=== PATIENT | male | born 1980 | race Caucasian/White ===

== ENCOUNTER 2017-06-20 09:23 | Emergency (ER) | payer MEDICAID, OTHER ==
[2017-06-20] MEDS: DEXAMETHASONE 10 MG/ML 1 ML INJ IM (11:32)
[2017-06-20] MEDS: ALBUTEROL 0.083% (NEB) 2.5 MG/3 ML AMP HHN (11:36)
[2017-06-20] MEDS: IPRATROPIUM (NEB) 0.5 MG/2.5 ML AMP HHN (11:36)
== END 2017-06-20 13:10 | disposition home or self-care (01) ==
LOC: FTE 13:10 → E/R 09:23
DX: J45.909 Unspecified asthma, uncomplicated (principal)
CPT/HCPCS: 71045; 94664; 96372; 99284-25